=== PATIENT | male | born 1950 | race American Indian/Alaskan Native ===

== ENCOUNTER 2021-11-15 00:14 | Emergency (ER) | payer MEDICARE ==
[2021-11-15] MEDS ORDERED: ACETAMINOPHEN 500 MG TAB PO ONE (02:59)
--- NOTE | 2021-11-15 03:33 | XRay Report ---
CHEST 2 VIEWS INDICATION / CLINICAL INFORMATION: cough fever. COMPARISON: None available. FINDINGS: SUPPORT DEVICES: None. HEART / MEDIASTINUM: Heart size and mediastinal contour appear within normal limits. LUNGS / PLEURA: Airspace opacities right lower lobe/right infrahilar lung. Lungs otherwise demonstrat e no focal consolidation. No pneumothorax. BONES: No significant osseous abnormality. ADDITIONAL FINDINGS: No significant additional findings. IMPRESSION: 1. Infectious process within the right lower lobe is suggested. Follow-up recommended to ensure compl ete resolution. Signer Name: Neel Henry II, MD Signed: 11/15/2021 3:29 AM Workstation Name: [id number]
--- NOTE | 2021-11-15 04:01 | Emergency Department Report ---
ED General Adult HPI - General Chief complaint: Fever Stated complaint: FEVER Time Seen by Provider: 11/15/21 02:59 Source: patient Mode of arrival: Ambulatory Limitations: No Limitations - History of Present Illness Initial comments: Patient 8-year-old male who presents for fever x2 days. States patient states concern for COVID. There is no nausea no vomiting patient does state secondary headache. Frontal 3/10. Symptoms are exacerbated by cough. There is no ear pain no throat pain no shortness of breath or chest pain. Patient is tolerating p.o. hydration and denies nausea or vomiting. Patient denies suspicious contacts patient is COVID vaccinated. Severity scale (0 -10): 0 - Related Data Previous Rx's Medication Instructions Recorded Last Taken Type Albuterol Mdi (or & Nicu Only) 2 puff IH QID PRN #8.5 gram 11/15/21 Unknown Rx [ProAir HFA Inhaler] Azithromycin [Zithromax TAB] 500 mg PO QDAY 5 Days #5 tab 11/15/21 Unknown Rx Allergies Allergy/AdvReac Type Severity Reaction Status Date / Time No Known Allergies Allergy Verified 11/15/21 00:21 ED Review of Systems ROS: Stated complaint: FEVER Other details as noted in HPI Constitutional: chills, fever, malaise Eyes: denies: eye pain, eye discharge, vision change ENT: denies: ear pain, throat pain Respiratory: cough Cardiovascular: denies: chest pain, palpitations Endocrine: no symptoms reported Gastrointestinal: denies: abdominal pain, nausea, vomiting, diarrhea Genitourinary: denies: urgency, dysuria Musculoskeletal: denies: back pain, joint swelling, arthralgia Skin: denies: rash, lesions Neurological: denies: headache, weakness, paresthesias Psychiatric: denies: anxiety, depression Hematological/Lymphatic: denies: easy bleeding, easy bruising ED Past Medical Hx - Medications Home Medications: Home Medications Medication Instructions Recorded Confirmed Last Taken Type Albuterol Mdi (or & Nicu Only) 2 puff IH QID PRN #8.5 gram 11/15/21 Unknown Rx [ProAir HFA Inhaler] Azithromycin [Zithromax TAB] 500 mg PO QDAY 5 Days #5 tab 11/15/21 Unknown Rx ED Physical Exam - General Limitations: No Limitations General appearance: alert, in no apparent distress - Head Head exam: Present: normocephalic, normal inspection - Eye Eye exam: Present: EOMI Pupils: Present: normal accommodation - ENT ENT exam: Present: normal orophraynx, mucous membranes moist, TM's normal bilaterally, normal external ear exam - Neck Neck exam: Present: normal inspection, full ROM. Absent: tenderness, lymphadenopathy - Respiratory Respiratory exam: Present: normal lung sounds bilaterally. Absent: respiratory distress, wheezes, rales, rhonchi, stridor, chest wall tenderness - Cardiovascular Cardiovascular Exam: Present: regular rate, normal rhythm, normal heart sounds. Absent: systolic murmur, diastolic murmur, rubs, gallop - GI/Abdominal GI/Abdominal exam: Present: soft, normal bowel sounds. Absent: distended, tenderness, guarding, rebound, rigid, bruit, hernia - Rectal Rectal exam: Present: deferred - Extremities Exam Extremities exam: Present: normal inspection, full ROM, normal capillary refill. Absent: pedal edema - Back Exam Back exam: Present: normal inspection, full ROM. Absent: CVA tenderness (R), CVA tenderness (L) - Neurological Exam Neurological exam: Present: alert, oriented X3, CN II-XII intact, normal gait - Expanded Neurological Exam Expanded Patient oriented to: Present: person, place, time Speech: Present: fluid speech Motor strength exam: RUE: 5, LUE: 5, RLE: 5, LLE: 5 Best Eye Response (Devang): (4) open spontaneously Best Motor Response (Devang): (6) obeys commands Best Verbal Response (Devang): (5) oriented Devang Total: 15 - Psychiatric Psychiatric exam: Present: normal affect, normal mood - Skin Skin exam: Present: warm, dry, intact, normal color. Absent: rash ED Course Vital Signs 11/15/21 00:20 Temperature 99.2 F Pulse Rate 94 H Respiratory 18 Rate Blood Pressure 145/84 O2 Sat by Pulse 95 Oximetry ED Medical Decision Making - Radiology Data Radiology results: report reviewed, image reviewed CHEST 2 VIEWS INDICATION / CLINICAL INFORMATION: cough fever. COMPARISON: None available. FINDINGS: SUPPORT DEVICES: None. HEART / MEDIASTINUM: Heart size and mediastinal contour appear within normal limits. LUNGS / PLEURA: Airspace opacities right lower lobe/right infrahilar lung. Lungs otherwise demonstrate no focal consolidation. No pneumothorax. BONES: No significant osseous abnormality. ADDITIONAL FINDINGS: No significant additional findings. IMPRESSION: 1. Infectious process within the right lower lobe is suggested. Follow-up recommended to ensure complete resolution. Signer Name: Flex Henry II, MD Signed: 11/15/2021 3:29 AM Workstation Name: [id number] Transcribed By: JOAQUIN Dictated By: FLEX HENRY II, MD Electronically Authenticated By: FLEX HENRY II, MD Signed Date/Time: 11/15/21328 DD/ 7 TD/TT: - Medical Decision Making Chest x-ray right lower lobe infiltrates discussed same with patient she declines further work-up advises he wants to follow-up with PCP, plan DC to home with prescriptions. Follow-up primary care doctor 1 to 2 days, Patient given strict instructions to return to emergency department should he develop worsening symptoms or shortness of breath. Patient advises headache is resolved, patient is tolerating p.o. intake. O2 sat is 98% room air. Respirations are even nonlabored at 16. Lung sounds are clear throughout. Given assessment findings DC to home with prescriptions is a reasonable treatment option at this time. Critical care attestation.: If time is entered above; I have spent that time in minutes in the direct care of this critically ill patient, excluding procedure time. ED Disposition Clinical Impression: CAP (community acquired pneumonia) Qualifiers: Laterality: right Lung location: lower lobe of lung Qualified Code(s): J18.9 - Pneumonia, unspecified organism Disposition: 01 HOME / SELF CARE / HOMELESS Is pt being admited?: No Does the pt Need Aspirin: No Condition: Stable Instructions: Bacterial Pneumonia (ED), Community-Acquired Pneumonia, Adult, [id number] Additional Instructions: Take medications as prescribed, follow-up with your doctor in 1 to 2 days. Turn to emergency department should symptoms worsen or you develop shortness of breath. Prescriptions: Albuterol Mdi (or & Nicu Only) [ProAir HFA Inhaler] 2 puff IH QID PRN #8.5 gram PRN Reason: Shortness Of Breath Azithromycin [Zithromax TAB] 500 mg PO QDAY 5 Days #5 tab Referrals: NIMA RODRIGUEZ MD [Staff Physician] - 3-5 Days Forms: Work/School Release Form(ED) Time of Disposition: 04:08
[2021-11-15] MEDS ORDERED: LIDOCAINE-MPF (1%) 10 MG/1 ML VIAL 5 ML INFILTRATI ONE (04:05)
[2021-11-15 04:38] VITALS: BP 139/81
== END 2021-11-15 04:36 | disposition home or self-care (01) ==
LOC: ED 00:14
DX: J18.9 Pneumonia, unspecified organism (principal); Z79.899 Other long term (current) drug therapy
CPT/HCPCS: 71046; 96372; 99283; J0696; J3490